=== PATIENT | male | born 1985 | race Caucasian/White ===

== ENCOUNTER 2022-04-01 11:19 | Emergency (ER) | payer BC ==
[~2022-04-01] VITALS: Ht 165.1 cm; Wt 84.0 kg
[2022-04-01] MEDS ORDERED: TETRACAINE 0.5% OPHTH DROPS 4ML RIGHTEYE ONE (14:45)
[2022-04-01] MEDS ORDERED: FLUORESCEIN SODIUM 1MG/STRIP RIGHTEYE ONE (14:45)
[2022-04-01 16:17] VITALS: BP 126/69
== END 2022-04-01 16:19 | disposition home or self-care (01) ==
LOC: ER 11:19
DX: H53.141 Visual discomfort, right eye (principal); E11.9 Type 2 diabetes mellitus without complications; E78.00 Pure hypercholesterolemia, unspecified; W89.0XXA Exposure to welding light (arc), initial encounter; Y93.89 Activity, other specified; Y92.89 Other specified places as the place of occurrence of the external cause; Y99.8 Other external cause status
CPT/HCPCS: 99283